=== PATIENT | male | born 1995 | race Caucasian/White ===

== ENCOUNTER 2016-10-29 10:12 | Emergency (ER) | payer OTHER ==
[~2016-10-29] VITALS: Ht 193 cm; Wt 84.1 kg
[2016-10-29 10:17] VITALS: TEMP 36.7; Ht 193 cm; Wt 84.1 kg
[2016-10-29] MEDS ORDERED: IBUPROFEN 800 MG TAB PO STA (10:48)
--- NOTE | 2016-10-29 11:14 | EMERGENCY ROOM VISIT NOTE ---
History Report prepared by Kiki: Evans Banuelos Under the Supervision of: Dr. Mati Simmons M.D. First contact with patient: 10:43 Chief Complaint: ANKLE PAIN Stated Complaint: LEFT ANKLE SPRAIN History of Present Illness The patient is a 21 year old male who presents to the Emergency Room with complaints of constant left ankle pain starting yesterday morning. The patient states that he was playing squash, and he jumped and landed on the side of his ankle, and now it is very swollen. He states that afterwards he could walk. though it was very painful. He states that this morning when he woke up he could barely walk due to the pain. He states that he has not taken any pain medications for the pain. Source of History: patient Onset: yesterday Position: ankle (left) Timing: constant Note: Associated symptoms: Swelling. Review of Systems See HPI for pertinent positives and negatives. A total of ten systems were reviewed and were otherwise negative. Past Medical & Surgical Surgical Problems: (1) H/O eye surgery Family History Diabetes mellitus Heart disease Hypertension Social History Smoking Status: Current Some Day Smoker Housing Status: lives alone Occupation Status: [employer] student Current/Historical Medications Scheduled PRN Ibuprofen Tab (Motrin), 800 MG PO Q8H PRN for Pain Allergies Coded Allergies: Red Pepper (Unverified Allergy, Unknown, ., 10/29/16) Physical Exam Vital Signs Date Time Temp Pulse Resp B/P (MAP) Pulse Ox O2 Delivery O2 Flow Rate FiO2 10/29/16 11:52 77 18 132/67 98 10/29/16 10:17 36.7 82 16 124/73 97 Room Air Physical Exam GENERAL: Awake, alert, well-appearing, in no distress HENT: Normocephalic, atraumatic. Oropharynx unremarkable. EYES: Normal conjunctiva. Sclera non-icteric. NECK: Supple. No nuchal rigidity. FROM. No JVD. RESPIRATORY: Clear to auscultation. CARDIAC: Regular rate, normal rhythm. Extremities warm and well perfused. Pulses equal. ABDOMEN: Soft, non-distended. No tenderness to palpation. No rebound or guarding. No masses. RECTAL: Deferred. MUSCULOSKELETAL: Chest examination reveals no tenderness. The back is symmetrical on inspection without obvious abnormality. There is no CVA tenderness to palpation. No joint edema. LOWER EXTREMITIES: 1+ edema with tenderness in the left malleolus extending down to the left dorsal aspect of the foot. Distal pulse, motor, and sensory intact. Calves are equal size bilaterally and non-tender. No discoloration. NEURO: Normal sensorium. No sensory or motor deficits noted. SKIN: No rash or jaundice noted. Medical Decision & Procedures ER Provider Diagnostic Interpretation: Radiology results as stated below per my review and radiologist interpretation: LEFT FOOT MIN 3 VIEWS ROUTINE CLINICAL HISTORY: ANKLE FOOT PAIN SWELLING LAT MAL COMPARISON: None. DISCUSSION: The bones and joint spaces appear intact. There is no evidence of fracture, dislocation or bony disease. There is no evidence for soft tissue swelling. IMPRESSION: Negative study. The above report was generated using voice recognition software. It may contain grammatical, syntax or spelling errors. Electronically signed by: Pancho Del Castillo M.D. 10/29/2016 11:21 AM Dictated Date/Time: 10/29/2016 11:20 AM LEFT ANKLE MIN 3 VIEWS ROUTINE CLINICAL HISTORY: ANKLE FOOT PAIN SWELLING LAT MAL trauma. Pain. COMPARISON: None. DISCUSSION: Lateral herlinda-malleolar lateral soft tissue edematous change. No acute bony abnormality. Cortical margins are intact. Subtalar joint is unremarkable. IMPRESSION: Lateral soft tissue edema. No acute bony abnormality. The above report was generated using voice recognition software. It may contain grammatical, syntax or spelling errors. Electronically signed by: Pancho Del Castillo M.D. 10/29/2016 11:17 AM Dictated Date/Time: 10/29/2016 11:16 AM Medications Administered Medications (Trade) Dose Ordered Sig/Abel Route Start Time Stop Time Status Last Admin Dose Admin Ibuprofen (Motrin Tab) 800 mg NOW STAT PO 10/29/16 10:48 10/29/16 10:50 DC 10/29/16 10:56 800 MG ED Course 1043: The patient was evaluated in room B5. A complete history and physical exam was performed. 1048: Motrin Tab 800mg PO 1135: I reevaluated the patient, and I discussed the radiology results. Discussed results and discharge instructions: He verbalized understanding and agreement. The patient is ready for discharge. Medical Decision I reviewed the patient's past medical history, medications, and the nursing notes as described above. Differential diagnoses include: Ankle fracture, ankle sprain, and soft tissue injury. Patient is a 21-year-old gentleman who presents emergency Department with left ankle pain and swelling after having injury yesterday per history of present illness. Arrival the patient is no acute distress, afebrile stable vital signs. On exam patient has moderate swelling to the ankle with tenderness to palpation in the lateral malleolus and lateral dorsal aspect of the foot. No tenderness to the tibia or fibula proximally. X-rays of foot and ankle negative for fracture. Thus, will provide ankle stirrup and crutches for weightbearing as tolerated. Findings and plan for follow-up d/w patient. Patient agreeable and d/c'd per discharge instructions. Medication Reconcilliation Current Medication List: was personally reviewed by me Blood Pressure Screening Patient's blood pressure: Normal blood pressure Impression Primary Impression: Ankle sprain Scribe Attestation The scribe's documentation has been prepared under my direction and personally reviewed by me in its entirety. I confirm that the note above accurately reflects all work, treatment, procedures, and medical decision making performed by me. Departure Information Dispostion Home / Self-Care Prescriptions Ibuprofen Tab (MOTRIN) 800 Mg Tab 800 MG PO Q8H Y for Pain for 7 Days, #21 TAB Prov: Mati Simmons M.D. 10/29/16 Referrals No Doctor, Assigned (PCP) Forms HOME CARE DOCUMENTATION FORM, IMPORTANT VISIT INFORMATION Patient Instructions [facility] ED Sprain Ankle, My [facility] Additional Instructions Please follow up with your primary care physician in the next 1-3 days for reevaluation. Otherwise, your exam and xray did not show signs of an emergent condition at this time. Take ibuprofen for pain as directed. Rice therapy. Return to the emergency department for worsening symptoms as described in the accompanying instructions.
--- NOTE | 2016-10-29 11:18 | DIAGNOSTIC IMAGING REPORT ---
LEFT ANKLE MIN 3 VIEWS ROUTINE CLINICAL HISTORY: ANKLE FOOT PAIN SWELLING LAT MAL trauma. Pain. COMPARISON: None. DISCUSSION: Lateral herlinda-malleolar lateral soft tissue edematous change. No acute bony abnormality. Cortical margins are intact. Subtalar joint is unremarkable. IMPRESSION: Lateral soft tissue edema. No acute bony abnormality. The above report was generated using voice recognition software. It may contain grammatical, syntax or spelling errors. Electronically signed by: Pancho Del Castillo M.D. 10/29/2016 11:17 AM Dictated Date/Time: 10/29/2016 11:16 AM
--- NOTE | 2016-10-29 11:22 | DIAGNOSTIC IMAGING REPORT ---
LEFT FOOT MIN 3 VIEWS ROUTINE CLINICAL HISTORY: ANKLE FOOT PAIN SWELLING LAT MAL COMPARISON: None. DISCUSSION: The bones and joint spaces appear intact. There is no evidence of fracture, dislocation or bony disease. There is no evidence for soft tissue swelling. IMPRESSION: Negative study. The above report was generated using voice recognition software. It may contain grammatical, syntax or spelling errors. Electronically signed by: Pancho Del Castillo M.D. 10/29/2016 11:21 AM Dictated Date/Time: 10/29/2016 11:20 AM
[2016-10-29] MEDS ORDERED: IBUP-1451 PO (11:42)
[2016-10-29 11:52] VITALS: BP 132/67; PULSE 77; O2SAT 98
== END 2016-10-29 11:53 | disposition home or self-care (01) ==
LOC: C.EDB 10:16
DX: S93.402A Sprain of unspecified ligament of left ankle, initial encounter (principal); X50.0XXA Overexertion from strenuous movement or load, initial encounter; Y93.73 Activity, racquet and hand sports; F17.210 Nicotine dependence, cigarettes, uncomplicated; Z83.3 Family history of diabetes mellitus; Z82.49 Family history of ischemic heart disease and other diseases of the circulatory system